=== PATIENT | male | born 1945 | race Caucasian/White ===

== ENCOUNTER 2020-08-07 16:59 | Emergency (ER) | payer MEDICARE ==
[~2020-08-07] VITALS: Ht 187.9 cm; Wt 86.2 kg
== END 2020-08-07 17:40 | disposition left against medical advice (07) ==
LOC: ED 16:59
DX: F41.0 Panic disorder [episodic paroxysmal anxiety] (principal); Z53.21 Procedure and treatment not carried out due to patient leaving prior to being seen by health care provider